=== PATIENT | male | born 1975 | race Two or more races ===

== ENCOUNTER 2024-06-21 20:08 | Emergency (ER) | payer OTHER, SELFPAY ==
[2024-06-21 20:18] VITALS: BP 157/91; PULSE 88; RESP 18; TEMP 37.1; O2SAT 100
--- NOTE | 2024-06-21 20:29 | XR_ITS ---
Examination: CT abdomen and pelvis without contrast. Coronal 3-D reconstructions. Sagittal 2-D reconstructions. Date and time of exam:June 21, 20241949 1:00 PM Indications: Right-sided flank pain beginning 2 days ago CTDI: vol (mGy): 7.21 DLP: (mGycm): 473 Technique: Axial images of the abdomen have been obtained, 3 mm slice thickness Intravenous contrast material has not been administered. Low dose protocols were performed. One or more of the following dose reduction techniques were used; automated exposure control, adjustment of the mA and/or KV according to patient size, use of iterative reconstruction technique. Findings: No focal liver or splenic lesions Absent gallbladder No pancreatic mass No renal or ureteral calculi, no hydronephrosis Aorta normal size Normal appendix No bowel obstruction No diverticulitis Contracted urinary bladder, urinary bladder wall thickening up to 14 mm Fat-containing inguinal hernias Impression: No renal or ureteral calculi, no hydronephrosis Normal appendix Significant thickening of urinary bladder wall, consider cystitis
--- NOTE | 2024-06-21 20:30 | PD.EDRME ---
Rapid Medical Screening Exam E Arrival date/time: 06/21/24 20:08 49-year-old male with past medical history of kidney disease and high blood pressure presents emergency department complaining of right sided flank pain. Chief Complaint: Abdominal Pain Time Seen by Provider: 06/21/24 20:23 Vital signs: Vital Signs Temperature 98.7 F 06/21/24 20:18 Pulse Rate 88 06/21/24 20:18 Respiratory Rate 18 06/21/24 20:18 Blood Pressure 157/91 H 06/21/24 20:18 Pulse Oximetry (%) 100 06/21/24 20:18 Oxygen Delivery Method Room Air 06/21/24 20:18 Vital signs reviewed by provider: Yes
[2024-06-21] MEDS: HYDROcodone/APAP 5/325 TABLET 1 TAB PO (20:41)
[2024-06-21 20:51] LABS: Collection Type, Urine Clean Catch; Squamous Epithelial Cell,Urine 0 /hpf (0-5)
[2024-06-21 20:59] LABS: Bilirubin,Urine Negative (Negative); Blood,Urine Negative (Negative); Clarity,Urine Clear (Clear/Hazy); Color,Urine Lt-Yellow (Lt Yel-Yel); Culture Indicated,Urine Not Indicated; Glucose, Urine Negative (Negative); Ketones,Urine Trace (Negative); Leukocyte Esterase,Urine Negative (Negative); Nitrite,Urine Negative (Negative); Protein,Urine Trace (Neg - Trace); RBC,Urine 2 /hpf (0-3); Specific Gravity,Urine 1.015 (1.001-1.035); Urobilinogen,Urine Negative mg/dL (0.0-1.0); WBC,Urine 1 /hpf (0-5)
[2024-06-21 21:11] LABS: Amphetamine/Methamp Scrn,U Negative (Negative); Barbiturate Screen,Urine Negative (Negative); Benzodiazepines Screen,Urine Negative (Negative); Benzoylecgonine Screen, Ur Negative (Negative); Fentanyl Screen,Urine Negative (Negative); Opiate Screen,Urine Negative (Negative); THC Screen,Urine Negative (Negative)
[2024-06-21 21:14] LABS: Basophils % (Auto) 1 % (0-2.5); Eosinophils % (Auto) 1 % (0-10); Hematocrit 42.6 % (41.0-53.0); Immature Granulocytes % (Auto) 0 % (0-0); Immature Granulocytes Auto 0.01 Thou/mm3 (0.00-0.00); Lymphocytes # (Auto) 1.3 Thou/mm3 (1.0-4.8); Lymphocytes % (Auto) 17 % (10-50); Mean Corpuscular HGB Conc 35.2 g/dl (31.0-37.0); Mean Corpuscular Hemoglobin 29.7 pg (25.0-35.0); Mean Corpuscular Volume 84 fL (80-100); Monocytes # (Auto) 0.4 Thou/mm3 (0.0-0.8); Monocytes % (Auto) 6 % (0-12); Neutrophils # (Auto) 5.8 Thou/mm3 (1.8-7.7); Neutrophils % (Auto) 76 % (37-80); Nucleated Red Blood Cell % 0 /100 WBC (0); Platelet Count 234 Thou/mm3 (140-440); RDW Standard Deviation 35.9 fL (35.1-43.9); Red Blood Count 5.05 Miln/mm3 (4.50-5.90); White Blood Count 7.7 Thou/mm3 (3.8-10.6)
[2024-06-21 21:37] LABS: Alanine Aminotransferase 13 U/L (10-49); Albumin, Serum 4.9 gm/dL (3.5-5.0); Albumin/Globulin Ratio 1.8 (1.2-2.2); Alkaline Phosphatase 51 U/L (46-116); Anion Gap 9 (7-16); Aspartate Amino Transferase 16 U/L (0-34); BUN/Creatinine Ratio 15 Ratio (12-20); Bilirubin,Total 0.9 mg/dL (0.3-1.2); Blood Urea Nitrogen 15 mg/dL (9-23); Calcium 10.5 mg/dL (8.3-10.6); Calcium (Corrected) 10.5 mg/dL (8.5-10.1); Carbon Dioxide 26.4 mMol/L (20.0-31.0); Chloride 107 mMol/L (98-107); Globulin 2.8 gm/dL (2.3-3.5); Glucose 91 mg/dL (74-106); Lipase 36 U/L (12-53); Osmolality,Calculated 283 (275-295); Potassium 3.9 mMol/L (3.4-5.1); Sodium 142 mMol/L (136-145); Total Protein 7.7 gm/dL (5.7-8.2); eGFR > 60 See Note
--- NOTE | 2024-06-21 22:05 | PD.EDABDPN ---
ED Abdominal Pain RME/HPI General Chief Complaint: Abdominal Pain Stated complaint: RIGHT FLANK PAIN Time seen by provider: 06/21/24 20:23 Arrival date/time: 06/21/24 20:08 RME / HPI RME / HPI narrative: 06/21/24 20:08 49-year-old male with past medical history of kidney disease and high blood pressure presents emergency department complaining of right sided flank pain. -------- Dr. Davis?s Main ED Evaluation: 49yo male with a history of CKD, HTN presents to the ED for a chief complaint of right-sided back pain radiating to his abdomen x 1 day. No alleviating or aggravating factors. Patient denies any fever, chills, nausea, vomiting, dysuria, constipation or any other associated symptoms. Denies any history of similar symptoms. PSH includes cholecystectomy and hernia repair. No known allergies. Related Data Home Medications ?Medication ?Instructions ?Recorded ?Confirmed Aspirin Ec * (ECOTRIN *) 81 mg PO QDAY ##0 10/13/13 Hydralazine Hcl * (APRESOLINE *) 50 mg PO TID #0 tabs 10/13/13 Lisinopril/Hydrochlorothiazide * 1 tab PO QAM #0 tabs 10/13/13 (PRINZIDE *) carvedilol 25 mg tablet (Coreg) 25 mg PO BID #0 tabs 10/13/13 clonidine HCl 0.1 mg tablet 0.1 mg PO BID #0 tabs 10/13/13 isosorbide mononitrate 60 mg 60 mg PO QDAY ##0 10/13/13 tablet,extended release 24 hr (Imdur) Allergies Allergy/AdvReac Type Severity Reaction Status Date / Time NKA* Allergy Uncoded 06/21/24 20:09 Review of Systems Review of Systems Systems Reviewed: All systems reviewed, normal except as documented Past Medical History Social History SMOKING STATUS: Former smoker ED Exam Narrative Physical exam: GENERAL APPEARANCE: alert and oriented x 4, well-developed, well-nourished, no acute distress VITALS: All vitals were reviewed and the pulse ox is 100% on room air, which is normal according to my interpretation. HEENT: Normocephalic, atraumatic; pupils equal, round, reactive to light; EOMI; mucous membranes pink, moist; oropharynx clear NECK: Supple LUNGS: CTABL; no wheezes, no rales, no rhonchi HEART: Regular rate, regular rhythm; normal S1, S2; no murmurs ABDOMEN: non distended; normal BS; soft, no RUQ or RLQ tenderness on deep palpation, no guarding, no rebound; no masses, no organomegaly, no hernia BACK: no CVA tenderness EXTREMITIES: atraumatic; no edema NEUROLOGIC: awake; alert and oriented x4; cranial nerves II-XII grossly intact; no focal sensory or motor deficits PSYCHIATRIC: appropriate mood and affect SKIN: warm, dry, normal color; no rashes Course Quality Measures none Orders Category Date Time Status CT abdomen pelvis wo con Stat Exams 06/21/24 20:29 Completed CBC Stat Lab 06/21/24 20:53 Completed CMP [Comprehensive Metabolic Panel] Stat Lab 06/21/24 20:53 Completed Drug Screen,Urine Stat Lab 06/21/24 20:36 Completed Lipase Stat Lab 06/21/24 20:53 Completed Urinalysis, C/S if Indicated Stat Lab 06/21/24 20:36 Completed HYDROcodone*/APAP 5/325 [[place] 5/325] Med 06/21/24 20:29 Discontinued 1 tab PO X1 ONE Morphine Inj Med 06/21/24 22:17 Discontinued 4 mg IVP X1 ONE Morphine Inj Med 06/21/24 22:20 Discontinued 5 mg IM X1 ONE Ondansetron Odt [Zofran Odt] Med 06/21/24 22:17 Discontinued 4 mg PO X1 ONE Vital Signs Vital signs: Vital Signs Temperature 98.7 F 06/21/24 20:18 Pulse Rate 88 06/21/24 20:18 Respiratory Rate 18 06/21/24 20:18 Blood Pressure 157/91 H 06/21/24 20:18 Pulse Oximetry (%) 100 06/21/24 20:18 Oxygen Delivery Method Room Air 06/21/24 20:18 Abdominal Pain MDM MDM Narrative MDM Narrative:: Scribe Attestation: 06/21/24 - Shanna Urbina am scribing for and in the presence of Dr. Davis. Patient data External records reviewed:: [facility] previous records (Per chart review, patient has no previous ED visits or admissions to this facility.) Clinical information provided by:: patient Social determinants that could affect healthcare access:: none Patient has the following chronic illnesses:: none How is presenting disease/condition affected by chronic disease/condition?: no chronic disease Evaluation data The following diagnostics were reviewed and interpreted by me:: lab results and radiology exam(s) Lab and/or radiology exams considered but not ordered:: none Interpretation Summary: CBC is normal, CMP is normal, Lipase is normal, UA is unremarkable, UDS is unremarkable, according to my interpretation. --------- [facility] Report Signed Patient: LAURA BONE. Record#: [id number] Birthdate: 1975 Age/Sex: 49 / M Location: [facility] Attending Dr: Ordering Physician: Laly MCNEIL)Jadon Date of Service: 06/21/24 Procedure(s): CT abdomen pelvis wo con Accession Number(s): [id number] cc: Wallace Barrientos MD; Laly Rodriguez (BEATER MACHINE OPERATOR),Jadon COOK~ Examination: CT abdomen and pelvis without contrast. Coronal 3-D reconstructions. Sagittal 2-D reconstructions. Date and time of exam:June 21, 2024 1950 1:00 PM Indications: Right-sided flank pain beginning 2 days ago CTDI: vol (mGy): 7.21 DLP: (mGycm): 473 Technique: Axial images of the abdomen have been obtained, 3 mm slice thickness Intravenous contrast material has not been administered. Low dose protocols were performed. One or more of the following dose reduction techniques were used; automated exposure control, adjustment of the mA and/or KV according to patient size, use of iterative reconstruction technique. Findings: No focal liver or splenic lesions Absent gallbladder No pancreatic mass No renal or ureteral calculi, no hydronephrosis Aorta normal size Normal appendix No bowel obstruction No diverticulitis Contracted urinary bladder, urinary bladder wall thickening up to 14 mm Fat-containing inguinal hernias Impression: No renal or ureteral calculi, no hydronephrosis Normal appendix Significant thickening of urinary bladder wall, consider cystitis Dictated By: Wallace Barrientos MD Signed By: <Electronically signed by Wallace Barrientos MD in [place]> 06/21/24 7184 Medications / Prescriptions Medications or Prescriptions considered but not ordered:: none Medication administrations:: Medication Administration History Discontinued Medications Hydrocodone Bitart/Acetaminophen (Hydrocodone/Apap 5/325 Tablet) 1 tab PO X1 ONE Stop: 06/21/24 20:30 Last Admin: 06/21/24 20:41 Dose: 1 tab Documented By: RICK Morphine Sulfate (Morphine Sulf Inj 10 Mg/Ml Vial) 4 mg IVP X1 ONE Stop: 06/21/24 22:18 Last Admin: 06/21/24 22:35 Dose: Not Given Documented By: SHIRIN Non-Admin Reason: Cancelled by Provider Morphine Sulfate (Morphine Sulf Inj 10 Mg/Ml Vial) 5 mg IM X1 ONE Stop: 06/21/24 22:21 Last Admin: 06/21/24 22:32 Dose: 5 mg Documented By: SHIRIN Ondansetron HCl (Ondansetron Odt 4 Mg Tabrap) 4 mg PO X1 ONE; Protocol Stop: 06/21/24 22:18 Last Admin: 06/21/24 22:32 Dose: 4 mg Documented By: SHIRIN see above Consultations Consultation(s) initiated? (list below): No Diagnosis Differential diagnosis abdominal pain: pancreatitis and other (pyelonephritis, renal colic, acute appendicitis) Most likely diagnosis given after review of the tests above:: see below Admission Indicated Admission indicated?: not indicated Explain why admission is indicated or not indicated:: Admission criteria not met. Patient is stable to be discharged home. Admission Request Was there a request for admission?: No Disposition Plan Disposition Plan: Discharge Discharge Attestation Discharge Attestation: The patient and all family members were given an opportunity to ask questions and understood the discharge instructions. Discharge instructions specifically effects, indications for sooner follow up or return to the emergency department, and the expected course of current diagnosis. Patient condition: Stable Discharge Plan Plan Patient Disposition: HOME (Self Care) Disposition Comment: Stable for discharge Patient condition on transfer: Stable Prescriptions/Referrals Prescriptions/Med Rec: No Action Aspirin Ec * (ECOTRIN *) 81 MG TABLET.DR 81 mg PO QDAY Qty: 0 carvedilol [Coreg] 25 MG tablet 25 mg PO BID Qty: 0 clonidine HCl 0.1 MG tablet 0.1 mg PO BID Qty: 0 isosorbide mononitrate [Imdur] 60 MG tablet extended release 24 hr 60 mg PO QDAY Qty: 0 Hydralazine Hcl * (APRESOLINE *) 50 MG tablet 50 mg PO TID Qty: 0 Lisinopril/Hydrochlorothiazide * (PRINZIDE 20/25 *) 1 TAB tablet 1 tab PO QAM Qty: 0 Referrals: Sarath Schroeder MD [Physician] - In 1 week Problem List Clinical Impression: Abdominal pain Patient/Caregiver Discharge Instructions Discharge Activity: activity as tolerated Education Materials: Abdominal Pain Additional Instructions: Please return to the emergency department for any worsening or any further medical problems. Otherwise you should follow-up with your primary care doctor within the next several days. You should also follow-up with Dr. Schroeder. Dr. Schroeder is our breastfeeding program coordinator which is a specialist with the stomach in the intestines. If you are continuing to have pain but neck several days I would call the office and make an appointment with them. Print Language: [place] Citizen Stand Alone Forms: [facility] Award Info., Patient Portal Info Letter
[2024-06-21 22:10] VITALS: BP 159/91; PULSE 84; RESP 15; TEMP 36.8; O2SAT 98
[2024-06-21] MEDS: ONDANSETRON ODT 4 MG TABRAP PO (22:32)
[2024-06-21] MEDS: MORPHINE SULF INJ 10 MG/ML VIAL 5 MG IM (22:32)
[2024-06-21 23:30] VITALS: BP 119/70; PULSE 79; RESP 16; TEMP 36.8; O2SAT 98
== END 2024-06-21 23:31 | disposition home or self-care (01) ==
LOC: SERX 23:15
PROVIDERS: Emergency Provider Emergency Medicine
DX: R10.9 Unspecified abdominal pain (principal); M54.9 Dorsalgia, unspecified; I12.9 Hypertensive chronic kidney disease with stage 1 through stage 4 chronic kidney disease, or unspecified chronic kidney disease; N18.9 Chronic kidney disease, unspecified
CPT/HCPCS: 36415; 74176; 80053; 80307; 81001; 83690; 85025; 96372; 99284; J2270; Q0162; A9270